=== PATIENT | female | born 2005 | race Caucasian/White ===

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

== ENCOUNTER 2023-01-29 12:30 | Outpatient (RCR) | payer SELFPAY ==
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
== END 2023-01-30 09:24 | disposition home or self-care (01) ==
PROVIDERS: PCP Physician Assistant Medical; Visit Provider Orthopaedic Surgery
DX: S52.123A Displaced fracture of head of unspecified radius, initial encounter for closed fracture (principal); Z51.89 Encounter for other specified aftercare
CPT/HCPCS: 97110; 97140; 97165; X5282